=== PATIENT | male | born 1990 | race Caucasian/White ===

== ENCOUNTER → 2021-11-18 14:16 | Outpatient (CLI) | payer SELFPAY | PROVIDERS: Visit Provider Nurse Practitioner Family | DX: Z20.822 Contact with and (suspected) exposure to COVID-19 (principal) | CPT/HCPCS: C9803; U0003; U0005 ==

== ENCOUNTER 2022-06-29 14:12 | Emergency (ER) | payer SELFPAY ==
[2022-06-29 14:13] VITALS: BP 141/91; PULSE 113; RESP 16; TEMP 37; O2SAT 98; BMI 31.3
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
--- NOTE | 2022-06-29 15:22 | PC.NURSE ---
JUNO SMITH at for pt ronyal
--- NOTE | 2022-06-29 15:25 | PC.NURSE ---
Contacting [facility] for consult
--- NOTE | 2022-06-29 15:27 | PC.NURSE ---
Spoke with Mary in Radiology; she is power-sharing images to [facility] at this time
--- NOTE | 2022-06-29 15:28 | PC.NURSE ---
Spoke with Rach with MDs; she reports they are backed up on a few calls and will give us a call as soon as they can reach the Neurosurgeon continuity reader
--- NOTE | 2022-06-29 15:46 | PC.NURSE ---
JUNO SMITH speaking with [facility] at this time
[2022-06-29 16:58] VITALS: BP 132/74; PULSE 78; RESP 16; TEMP 36.6; O2SAT 98
== END 2022-06-29 17:01 | disposition home or self-care (01) ==
PROVIDERS: Emergency Provider Emergency Medicine
DX: S06.6X1A Traumatic subarachnoid hemorrhage with loss of consciousness of 30 minutes or less, initial encounter (principal); F41.9 Anxiety disorder, unspecified; W08.XXXA Fall from other furniture, initial encounter; Z88.0 Allergy status to penicillin
CPT/HCPCS: 70450; 72125; 99285

== ENCOUNTER 2023-05-22 04:31 | Emergency (ER) | payer BC, SELFPAY ==
[2023-05-22 04:49] VITALS: BP 160/101; PULSE 128; RESP 20; TEMP 36.8; O2SAT 98; BMI 32.5
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
[2023-05-22 06:16] VITALS: BP 143/89; PULSE 105; RESP 18; TEMP 36.7
== END 2023-05-22 06:20 | disposition home or self-care (01) ==
PROVIDERS: Emergency Provider Emergency Medicine; PCP Family Medicine
DX: T23.262A Burn of second degree of back of left hand, initial encounter (principal); T24.232A Burn of second degree of left lower leg, initial encounter; T25.221A Burn of second degree of right foot, initial encounter; X08.8XXA Exposure to other specified smoke, fire and flames, initial encounter
CPT/HCPCS: 16025; 96361; 96374; 96375; 99284; J0131

== ENCOUNTER 2023-05-24 16:27 | Emergency (ER) | payer BC, SELFPAY ==
[2023-05-24 16:29] VITALS: BP 147/110; PULSE 70; RESP 17; TEMP 36.7; O2SAT 100; BMI 31.4
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
--- NOTE | 2023-05-24 16:51 | PC.NURSE ---
pt wounds undressed at this time. reapplied silvadine, covered moffett with non-adherent dressings and secured with kerlex and jamaal wrap pt provided. pt tolerated well
[2023-05-24 17:30] VITALS: BP 137/101; PULSE 87; RESP 17; TEMP 36.7; O2SAT 98
== END 2023-05-24 17:32 | disposition home or self-care (01) ==
PROVIDERS: Emergency Provider Student in an Organized Health Care Education/Training Program; PCP Family Medicine
DX: T23.262A Burn of second degree of back of left hand, initial encounter (principal); T24.212A Burn of second degree of left thigh, initial encounter; T24.232A Burn of second degree of left lower leg, initial encounter; X08.8XXA Exposure to other specified smoke, fire and flames, initial encounter
CPT/HCPCS: 99283

== ENCOUNTER 2023-05-25 16:45 | Emergency (ER) | payer BC, SELFPAY ==
[2023-05-25 16:47] VITALS: BP 154/105; PULSE 97; RESP 18; TEMP 36.8; O2SAT 97; BMI 31.4
[2023-05-25 16:50] VITALS: BP 154/105; PULSE 94; O2SAT 97
[2023-05-25 17:00] VITALS: BP 145/86; PULSE 89; O2SAT 98
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
--- NOTE | 2023-05-25 18:23 | PC.NURSE ---
Silvadene application to moffett located to dorsal aspect of left hand and LLE. Dressing applied patient tolerated well. No S/S of infection
[2023-05-25 18:24] VITALS: BP 145/86; PULSE 89; RESP 18; TEMP 36.8; O2SAT 98
== END 2023-05-25 18:26 | disposition home or self-care (01) ==
PROVIDERS: Emergency Provider Emergency Medicine; PCP Family Medicine
DX: T23.262A Burn of second degree of back of left hand, initial encounter (principal); F17.200 Nicotine dependence, unspecified, uncomplicated; X58.XXXA Exposure to other specified factors, initial encounter; Z23 Encounter for immunization
CPT/HCPCS: 90714; 96372; 99283; 99284

== ENCOUNTER 2023-10-29 04:49 | Emergency (ER) | payer BC, SELFPAY ==
[2023-10-29 04:50] VITALS: BP 144/90; PULSE 95; RESP 16; TEMP 36.9; O2SAT 97; BMI 36.6
--- NOTE | 2023-10-29 05:13 | HMH.EDGENADL ---
Discharge Plan Disposition Patient Disposition: Home, Self-Care Condition: Good Prescriptions Prescriptions: New lidocaine [Lidoderm] 5 % adhesive patch,medicated 1 patch topical DAILY Qty: 15 0RF Rx Instructions: leave on most painful area for up to 12 hrs methocarbamol 750 mg tablet 750 mg PO Q8H PRN (Reason: pain) Qty: 20 0RF naproxen 500 mg tablet 500 mg PO BID PRN (Reason: pain) Qty: 20 0RF No Action lisinopril 10 mg tablet 10 mg PO DAILY Patient Comments: TAKE 1 TABLET BY MOUTH ONCE DAILY Referrals Follow up/Referrals: Ag Huntley MD [Primary Care Provider] - See instructions Activity Restrictions/Add. Instructions Additional Instructions/Restrictions: You were evaluated in the emergency department today. Please order picker/assembler your medications at the pharmacy and take them as needed for pain. You may also take Tylenol as needed. Follow-up with your primary care provider for reassessment. Return to the emergency department for new or worsening symptoms, such as new numbness, new tingling, urinary incontinence, or bowel incontinence. Clinical Impressions Clinical Impression: Acute left-sided back pain with sciatica Stand Alone Forms Stand Alone Forms: Work/School Release Instructions Patient Instructions: DI for Back Pain With Sciatica Discharge ED Provider: Karlie Chen General Adult HPI General Chief complaint: PAIN Stated complaint: lower back and leg pain Time Seen by Provider: 10/29/23 04:57 Mode of Arrival: Ambulatory Source of Information: Patient Limitations: No Limitations Description of Symptoms (Recalled from ER Triage Doc. by RN): pt c/o lt hip pain radiating down leg x 2 weeks History of Present Illness HPI narrative: This patient is a 33-year-old male who denies significant past medical history presenting to the emergency department for evaluation with concern for left-sided low back pain radiating down his left leg. Is been going on for 2 weeks but got much worse last night. He describes it as a shooting electric pain. He states that he was fine yesterday when he got home from work, but he woke up with this pain after going to sleep last night. He denies any numbness, tingling, saddle anesthesia, incontinence, retention, or other concerns. He has otherwise been well. No falls or traumatic injuries noted. No other concerns at this time. No history of drug use, fevers, chills, other constitutional symptoms, or other concerns. Related Data Home Medications Medication Instructions Recorded Confirmed lisinopril 10 mg tablet 10 mg PO DAILY 10/29/23 10/29/23 Previous Rx's Medication Instructions Recorded lidocaine 5 % topical patch 1 patch topical DAILY #15 ea 10/29/23 (Lidoderm) methocarbamol 750 mg tablet 750 mg PO Q8H PRN pain #20 tabs 10/29/23 naproxen 500 mg tablet 500 mg PO BID PRN pain #20 tabs 10/29/23 Allergies Allergy/AdvReac Type Severity Reaction Status Date / Time PENICILLIN Allergy Intermediate I-RASH Uncoded 11/06/17 14:54 [facility] Disclaimer: The information contained in this section may have been updated after the patient was seen, as this information can be updated by other users. Social History Smoking Status: Current every day smoker alcohol intake: current current occupational status: employed Travel in the last 8 weeks: None ROS Obtained: Yes All systems reviewed & no additional complaints except as documented Physical Exam General General appearance: alert and in no apparent distress Head Head exam: atraumatic and normocephalic Eye Eye exam: Present normal appearance, PERRL and EOMI ENT ENT exam: Present normal exam, normal oropharynx, mucous membranes moist and normal external ear exam Neck Neck exam: Present normal inspection, full ROM and trachea midline; Absent tenderness Chest Chest inspection: Present normal inspection and symmet
[2023-10-29 05:30] VITALS: BP 134/78; PULSE 87; RESP 16; TEMP 36.9; O2SAT 97
== END 2023-10-29 05:31 | disposition home or self-care (01) ==
PROVIDERS: Emergency Provider Emergency Medicine; PCP Family Medicine
DX: M54.42 Lumbago with sciatica, left side (principal); F17.200 Nicotine dependence, unspecified, uncomplicated
CPT/HCPCS: 96372; 99283

== ENCOUNTER → 2023-11-13 12:08 | Outpatient (CLI) | payer BC, SELFPAY ==
--- NOTE | 2023-11-13 12:14 | XR_ITS ---
FINAL REPORT CLINICAL HISTORY: ACUTE LEFT SIDE LOW BACK PAIN W/LEFT SIDE SCIATICA COMPARISON: None FINDINGS: LUMBOSACRAL SPINE SERIES Five views of the lumbosacral spine were obtained. There is no fracture present. There is no malalignment. There are no significant degenerative changes. IMPRESSION: No acute process. Reviewed, Interpreted and Dictated by Deangelo Rosen MD Transcribed by Love Morgan Authenticated and [facility]
== END ==
LOC: RAD 12:09
PROVIDERS: PCP Family Medicine; Visit Provider Family Medicine
DX: M54.42 Lumbago with sciatica, left side (principal)
CPT/HCPCS: 72110

== ENCOUNTER 2025-01-10 20:57 | Emergency (ER) | payer BC, SELFPAY ==
[2025-01-10 21:03] VITALS: BP 131/77; PULSE 98; RESP 12; TEMP 36.9; O2SAT 99; BMI 30.4
--- NOTE | 2025-01-10 21:06 | PC.NURSE ---
Pt sleeping when undisturbed Resp full and easy Speech slurred but appropriate. Skin pink warm and dry. Pt vomiting intermittently
--- NOTE | 2025-01-10 21:07 | PC.NURSE ---
Report given to Shyann BELCHER
--- NOTE | 2025-01-10 21:11 | ED_ITS ---
Discharge Plan Disposition Patient Disposition: Home, Self-Care Condition: Good Prescriptions Prescriptions: No Action lisinopril 10 mg tablet 10 mg PO DAILY Patient Comments: TAKE 1 TABLET BY MOUTH ONCE DAILY lidocaine [Lidoderm] 5 % adhesive patch,medicated 1 patch topical DAILY Qty: 15 0RF Rx Instructions: leave on most painful area for up to 12 hrs methocarbamol 750 mg tablet 750 mg PO Q8H PRN (Reason: pain) Qty: 20 0RF naproxen 500 mg tablet 500 mg PO BID PRN (Reason: pain) Qty: 20 0RF Referrals Follow up/Referrals: Provider,Referral, [Primary Care Provider] - See instructions Clinical Impressions Clinical Impression: Alcohol intoxication Instructions Patient Instructions: DI for Diarrhea and Traveler's Diarrhea -- Adult, DI for Diarrhea and Traveler's Diarrhea -- Child, DI for Nausea -- Adult, DI for Nausea -- Child Print Language Print Language: Japanese Discharge ED Provider: Yeny Sena General Adult HPI <Yeny Sena MD - Last Filed: 01/10/25 22:37> General Chief complaint: Nausea/Vomiting/Diarrhea Stated complaint: intoxication Time Seen by Provider: 01/10/25 21:00 Mode of Arrival: EMS Source of Information: Patient Limitations: No Limitations Description of Symptoms (Recalled from ER Triage Doc. by RN): intoxication History of Present Illness HPI narrative: Patient is a 34-year-old male presenting today after being found down in presumably intoxicated. He admits to drinking vodka people that he was with at a green party tonight stated that he had a significant amount of vodka patient only admits to 2 shots but others with him stated he had significantly more. Someone was also concerned that he has been snorting Xanax. The person is not here to give that direct report that came through EMS. Patient denies that at the moment denies any other drug use. He denies any complaints other than feeling intoxicated. No history of trauma. Related Data Home Medications ?Medication ?Instructions ?Recorded ?Confirmed lisinopril 10 mg tablet 10 mg PO DAILY 10/29/23 01/10/25 Previous Rx's ?Medication ?Instructions ?Recorded lidocaine 5 % topical patch 1 patch topical DAILY #15 ea 10/29/23 (Lidoderm) methocarbamol 750 mg tablet 750 mg PO Q8H PRN pain #20 tabs 10/29/23 naproxen 500 mg tablet 500 mg PO BID PRN pain #20 tabs 10/29/23 Allergies Allergy/AdvReac Type Severity Reaction Status Date / Time PENICILLIN Allergy Intermediate I-RASH Uncoded 11/06/17 14:54 PFS <Yeny Sena MD - Last Filed: 01/10/25 22:37> [facility] Disclaimer: The information contained in this section may have been updated after the patient was seen, as this information can be updated by other users. Social History Smoking Status: Current every day smoker alcohol intake: current current occupational status: employed Travel in the last 8 weeks: None Have you lived/traveled outside [place] in past 30 days?: No Contact w/someone who lives/traveled outside [place] past 30 days?: No Exposure to someone with infectious disease in past 14 days?: No Do you have a fever (greater than 100.4 F or 38 C)?: No Have you tested positive for COVID-19: No Exposed to someone with COVID-19 in past 14 days?: No Do you have a sore throat?: No Do you have a cough?: No Do you have any weakness?: No Do you have any diarrhea?: No Are you experiencing any unusual bleeding?: No Do you have any muscle aches/pain?: No Do you have any abdominal pain?: No Are you experiencing loss of taste or smell?: No Other Medical History Have you received the Flu Vaccine for this season: No Have you received the Pneumonia Vaccine: No <Yeny Sena MD - Last Filed: 01/10/25 22:37> ROS Obtained: Yes unobtainable due to mental status Physical Exam <Yeny Sena MD - Last Filed: 01/10/25 22:37> General General appearance: appears intoxicated Respiratory Respiratory exam: Present normal lung sounds bilaterally Cardiovascular Cardiovascular exam: Present regular rate Neurological Exam Neurological exam: Present alert and other (Patient clearly intoxicated clinically moving all of his extremities he is nonfocal has a GCS of 14 at the moment.) Medical Decision Making <Yeny Sena MD - Last Filed: 01/10/25 22:37> Medical Records Screening: Per USPSTF and CDC recommendations, given the prevalence of disease in our region, it is our hospital?s policy to screen for HIV and viral Hepatitis for all patients aged 18 and over and those with ongoing risk factors. [place] Inquiry Pt receiving controlled substance: No Vital Signs: 01/10/25 21:03 01/10/25 21:13 01/10/25 21:57 Temperature 98.4 F Temperature Source Oral Pulse Rate 90 85 Pulse Rate [Right Brachial] 98 H Respiratory Rate 12 Blood Pressure 123/73 123/73 Blood Pressure [Right Arm] 131/77 Blood Pressure Mean [Right Arm] 95 Blood Pressure Source Blood Pressure Source [Right Arm] Automatic Cuff Blood Pressure Position Supine Blood Pressure Position [Right Arm] Sitting 02 Sat by Pulse Oximetry 99 97 Oxygen Delivery Method Nasal Cannula 01/10/25 22:00 01/10/25 23:30 Temperature 97.9 F Temperature Source Oral Pulse Rate 85 72 Pulse Rate [Right Brachial] Respiratory Rate 18 Blood Pressure 113/65 128/72 Blood Pressure [Right Arm] Blood Pressure Mean [Right Arm] Blood Pressure Source Automatic Cuff Blood Pressure Source [Right Arm] Blood Pressure Position Supine Blood Pressure Position [Right Arm] 02 Sat by Pulse Oximetry 96 Oxygen Delivery Method Room Air Lab Data Lab Results 01/10/25 21:15: HCV Ab MASON w/Rflx PCR Qn Negative, HIV Ag/Ab Combo Qual Negative Orders (Tests/Meds): ORDERS Category Date Time Status HIV Combo Routine Lab 01/10/25 21:15 Completed Hepatitis C Ab Qual. W/ RFX Routine Lab 01/10/25 21:15 Completed Medical Decision Narrative: Intoxicated 34-year-old male presenting today after bystanders witnessed him drinking a significant amount of alcohol/vodka and possibly snorting Xanax. That is alleged no one here definitively to give that history and came indirectly through EMS. No indication for any labs at the moment we will him to metabolize he does have IV fluids going he is on a monitor we will keep an eye on him. Patient will be placed in ED observation. Patient transition to Dr. Maher at 11 PM pending reevaluation once the patient is more awake and sober. <Deep Maher MD - Last Filed: 01/11/25 00:49> Vital Signs: 01/10/25 21:03 01/10/25 21:13 01/10/25 21:57 Temperature 98.4 F Temperature Source Oral Pulse Rate 90 85 Pulse Rate [Right Brachial] 98 H Respiratory Rate 12 Blood Pressure 123/73 123/73 Blood Pressure [Right Arm] 131/77 Blood Pressure Mean [Right Arm] 95 Blood Pressure Source Blood Pressure Source [Right Arm] Automatic Cuff Blood Pressure Position Supine Blood Pressure Position [Right Arm] Sitting 02 Sat by Pulse Oximetry 99 97 Oxygen Delivery Method Nasal Cannula 01/10/25 22:00 01/10/25 23:30 Temperature 97.9 F Temperature Source Oral Pulse Rate 85 72 Pulse Rate [Right Brachial] Respiratory Rate 18 Blood Pressure 113/65 128/72 Blood Pressure [Right Arm] Blood Pressure Mean [Right Arm] Blood Pressure Source Automatic Cuff Blood Pressure Source [Right Arm] Blood Pressure Position Supine Blood Pressure Position [Right Arm] 02 Sat by Pulse Oximetry 96 Oxygen Delivery Method Room Air Lab Data Lab Results 01/10/25 21:15: HCV Ab MASON w/Rflx PCR Qn Negative, HIV Ag/Ab Combo Qual Negative Orders (Tests/Meds): ORDERS Category Date Time Status HIV Combo Routine Lab 01/10/25 21:15 Completed Hepatitis C Ab Qual. W/ RFX Routine Lab 01/10/25 21:15 Completed Medical Decision Narrative: Intoxicated 34-year-old male presenting today after bystanders witnessed him drinking a significant amount of alcohol/vodka and possibly snorting Xanax. That is alleged no one here definitively to give that history and came indirectly through EMS. No indication for any labs at the moment we will him to metabolize he does have IV fluids going he is on a monitor we will keep an eye on him. Patient will be placed in ED observation. Patient transition to Dr. Maher at 11 PM pending reevaluation once the patient is more awake and sober. Gunnar SMITH: I assumed care of the patient at the time of handoff from the prior provider. On reassessment patient is awake alert and oriented and ambulating without difficulty. Given this patient was deemed appropriate discharged outpatient management. Critical Care <Yeny Sena MD - Last Filed: 01/10/25 22:37> Critical Care Time Critical Care Time: No
[2025-01-10 21:13] VITALS: BP 123/73; PULSE 90; O2SAT 97
[2025-01-10 21:57] VITALS: BP 123/73; PULSE 85
[2025-01-10 22:00] VITALS: BP 113/65; PULSE 85; O2SAT 96
--- NOTE | 2025-01-10 22:53 | PC.NURSE ---
Pt awake and alert Ambulatory to the restroom with minimal assistance.
[2025-01-10 23:03] LABS: HIV Combo NEGATIVE (Negative)
[2025-01-10 23:13] LABS: Hepatitis C Ab Qual. W/ RFX NEGATIVE (Negative)
[2025-01-10 23:30] VITALS: BP 128/72; PULSE 72; RESP 18; TEMP 36.6; O2SAT 98
--- NOTE | 2025-01-10 23:35 | PC.NURSE ---
IV removed. Catheter tip intact. Bleeding controlled.
== END 2025-01-10 23:36 | disposition home or self-care (01) ==
PROVIDERS: Emergency Provider Student in an Organized Health Care Education/Training Program
DX: F10.929 Alcohol use, unspecified with intoxication, unspecified (principal); Z72.0 Tobacco use
CPT/HCPCS: 86803; 87389; 99284